=== PATIENT | male | born 1995 | race Caucasian/White ===

== ENCOUNTER 2020-10-23 17:08 | Emergency (ER) | payer OTHER ==
[~2020-10-23 17:08] MED LIST: FLEXERIL 10 MG10 MG PO; IBUPROFEN600 MG PO; PENVEE K 500 M500 MG PO; PROVENTIL HFA6.7 GM INH; ZITHROMAX250 MG PO
[2020-10-23 19:40] LABS: BUN/CREATININE RATIO 17 (0-10)
[2020-10-23 19:47] LABS: HEMOGLOBIN 15.2 gm/dl (14.0-17.5); RED BLOOD COUNT 5.23 M/UL (4.20-5.50); WHITE BLOOD COUNT 9.3 K/UL (4.5-11.0)
[2020-10-23] MEDS ORDERED: AUGMENTIN 875-1 EACH PO (22:28)
[2020-10-23] MEDS ORDERED: PROAIR HFA8.5 GM INH (22:28)
[2020-10-23] MEDS ORDERED: PREDNISONE 20 M20 MG PO (22:28)
== END 2020-10-23 22:40 | disposition home or self-care (01) ==
LOC: ER1 17:08
DX: J40 Bronchitis, not specified as acute or chronic (principal); H65.191 Other acute nonsuppurative otitis media, right ear; F17.200 Nicotine dependence, unspecified, uncomplicated; Z86.79 Personal history of other diseases of the circulatory system; Z20.822 Contact with and (suspected) exposure to COVID-19
CPT/HCPCS: 0240U; 71045; 80053; 85025; 87081; 87880; 93005; 99284

== ENCOUNTER 2020-12-04 14:41 | Emergency (ER) | payer OTHER ==
[~2020-12-04 14:41] MED LIST changes: +AUGMENTIN 875-1 EACH PO; +PREDNISONE 20 M20 MG PO; +PROAIR HFA8.5 GM INH
[2020-12-04] MEDS ORDERED: TRUVADA 200 MG1 EACH PO (16:21)
[2020-12-04] MEDS ORDERED: ISENTRESS PO (16:21)
[2020-12-05 08:14] LABS: HIV SCREEN 4TH GENERATION WRFX Non Reactive (Non Reactive)
[2020-12-05 10:14] LABS: HBSAG SCREEN Negative (Negative); HEP A AB, IGM Negative (Negative); HEP B CORE AB, IGM Negative (Negative); HEP C VIRUS AB <0.1 (0.0-0.9)
== END 2020-12-04 16:40 | disposition home or self-care (01) ==
LOC: ER1 14:41
PROVIDERS: Physician Assistant
DX: S69.91XA Unspecified injury of right wrist, hand and finger(s), initial encounter (principal); F17.200 Nicotine dependence, unspecified, uncomplicated; W46.1XXA Contact with contaminated hypodermic needle, initial encounter; Y92.89 Other specified places as the place of occurrence of the external cause; Y99.0 Civilian activity done for income or pay
CPT/HCPCS: 80074; 87389; 99283